=== PATIENT | female | born 1985 | race Caucasian/White ===

== ENCOUNTER → 2025-01-16 13:25 | Outpatient (REF) | payer OTHER, SELFPAY | LOC: PNTC 13:25 | PROVIDERS: ATTENDING PHYSICIAN Obstetrics & Gynecology | DX: O09.529 Supervision of elderly multigravida, unspecified trimester (principal) | CPT/HCPCS: 76811; 76817 ==

== ENCOUNTER → 2025-03-05 14:57 | Outpatient (REF) | payer OTHER, SELFPAY | LOC: PNTC 14:57 | PROVIDERS: ATTENDING PHYSICIAN Obstetrics & Gynecology | DX: O09.529 Supervision of elderly multigravida, unspecified trimester (principal); E03.9 Hypothyroidism, unspecified | CPT/HCPCS: 76816 ==

== ENCOUNTER → 2025-04-16 15:34 | Outpatient (REF) | payer OTHER, SELFPAY | LOC: PNTC 15:34 | PROVIDERS: ATTENDING PHYSICIAN Obstetrics & Gynecology | DX: O99.283 Endocrine, nutritional and metabolic diseases complicating pregnancy, third trimester (principal); O09.523 Supervision of elderly multigravida, third trimester | CPT/HCPCS: 76816 ==